=== PATIENT | male | born 1965 | race Caucasian/White ===

== ENCOUNTER 2021-01-06 14:58 | Emergency (ER) | payer SELFPAY ==
--- NOTE | 2021-01-06 15:55 | ER ---
Nurse's Notes [facility] Name: Shashi Gutierrez Age: 55 yrs Sex: Male : 1965 Arrival Date: 01/06/2021 Time: 15:00 Bed 9 Private MD: Diagnosis: Essential (primary) hypertension;Electrocution, initial encounter Presentation: 01/06 15:09 Chief complaint: Patient states: Went to Dr. Joshua today because my stomach is hurting jl7 and I'm feeling ''foggy" since 0900 this morning and she sent me to ER because my blood pressure was 192/117, I've been out of 20 mg Lisinopril for the last 3 months. Coronavirus screen: At this time, the client does not indicate any symptoms associated with coronavirus-19. Ebola Screen: No symptoms or risks identified at this time. Initial Sepsis Screen: Does the patient meet any 2 criteria? No. Patient's initial sepsis screen is negative. Does the patient have a suspected source of infection? No. Patient's initial sepsis screen is negative. Risk Assessment: Do you want to hurt yourself or someone else? Patient reports no desire to harm self or others. Onset of symptoms was January 06, 2021. Care prior to arrival: None. 15:09 Method Of Arrival: Ambulatory [facility] 15:09 Acuity: MARIAM 3 jl7 Triage Assessment: 15:19 Headache History: The patient has had previous headaches and this one is similar to jl7 previous episodes. General: Appears in no apparent distress. uncomfortable, Behavior is calm, cooperative, appropriate for age. Pain: Complains of pain in abdomen diffusely Pain currently is 7 out of 10 on a pain scale. Pain began gradually, Also complains of no other associated symptoms. Neuro: Level of Consciousness is awake, alert, obeys commands, Oriented to person, place, time, situation. Historical: - Allergies: 15:19 Lortab Elixir; jl7 - Home Meds: 15:19 lisinopril 20 mg Oral tab 1 tab once daily [Active]; jl7 - PMHx: 15:19 Hypertensive disorder; jl7 - PSHx: 15:19 back; jl7 - Immunization history:: Adult Immunizations not immunized, Client reports having NOT received the Covid vaccine. - Social history:: Smoking status: Patient denies any tobacco usage or history of. Screenin:32 Abuse screen: Denies threats or abuse. Denies injuries from another. Nutritional es2 screening: No deficits noted. Tuberculosis screening: No symptoms or risk factors identified. Fall Risk Ambulatory Aid- None/Bed Rest/Nurse Assist (0 pts). Mental Status- Oriented to own ability (0 pts). Assessment: 15:30 Reassessment: Patient and/or family updated on plan of care and expected duration. Pain es2 level reassessed. Patient is alert, oriented x 3, equal unlabored respirations, skin warm/dry/pink. General: Appears obese, well groomed, well nourished, Behavior is calm, cooperative, appropriate for age. 15:31 Pain: Complains of pain in abdomen Pain currently is 7 out of 10 on a pain scale. es2 Neuro: Level of Consciousness is awake, alert, obeys commands, Oriented to person, place, time, situation, Appropriate for age Gait is steady, Speech is normal. Cardiovascular: Capillary refill < 3 seconds Patient's skin is warm and dry. Respiratory: Airway is patent Respiratory effort is even, unlabored, Respiratory pattern is regular, symmetrical. GI: Reports lower abdominal pain. : No signs and/or symptoms were reported regarding the genitourinary system. EENT: No signs and/or symptoms were reported regarding the EENT system. Derm: No signs and/or symptoms reported regarding the dermatologic system. Musculoskeletal: No signs and/or symptoms reported regarding the musculoskeletal system. Vital Signs: 15:09 BP 196 / 107; Pulse 89; Resp 17; Temp 98.2; Pulse Ox 98% ; Weight 145.6 kg; Height 5 jl7 ft. 9 in. (175.26 cm); Pain 7/10; 15:32 BP 173 / 115; Pulse 87; Resp 18; Pulse Ox 97% on R/A; es2 15:09 Body Mass Index 47.40 (145.60 kg, 175.26 cm) jl7 NIH Stroke Scale Scores: 15:57 NIHSS Score: 0 jr8 ED Course: 15:00 Patient arrived in ED. am2 15:19 Triage completed. jl7 15:19 Arm band placed on right wrist. jl7 15:23 Marcelo Aldana PA is PHCP. jr8 15:23 Paul Cortés MD is Attending Physician. jr8 15:23 Brynn Schmitt, RN is Primary Nurse. es2 15:32 Patient has correct armband on for positive identification. Call light in reach. es2 15:32 No provider procedures requiring assistance completed. es2 15:56 Patient did not have IV access during this emergency room visit. es2 Administered Medications: No medications were administered Outcome: 15:54 Discharge ordered by MD. jr8 15:56 Discharged to home ambulatory. es2 15:56 Condition: stable 16:05 Patient left the ED. es2 16:06 Discharge instructions given to patient, Instructed on discharge instructions. es2 NIH Stroke Scale - NIH Stroke Score Date: 01/06/2021 Time: 15:57 Total Score = 0 1a. Level of Consciousness (LOC) - 0(Alert) 1b. Level of Consciousness (LOC) (Month \\T\\ Age) - 0(Both) 1c. LOC Commands (Open \\T\\ Closes Eyes/[employer]) - 0(Both) 2. Best Gaze (Lateral Gaze Paresis) - 0(Normal) 3. Visual Field Loss - 0(No visual loss) 4. Facial Palsy - 0(Normal) 5a. Left Arm: Motor (10-second hold) - 0(No drift) 5b. Right Arm: Motor (10-second hold) - 0(No drift) 6a. Left Leg: Motor (5-second hold - always test supine) - 0(No drift) 6b. Right Leg: Motor (5-second hold - always test supine) - 0(No drift) 7. Limb Ataxia (finger/nose \\T\\ heel/de [place]antos - test with eyes open) - 0(Absent) 8. Sensory Loss (pinprick arms/legs/face) - 0(Normal) 9. Best Language: Aphasia (description/naming/reading) - 0(No aphasia) 10. Dysarthria (speech clarity - read or repeat words) - 0(Normal) 11. Extinction and Inattention (visual/tactile/auditory/spatial/personal) - 0(No abnormality) Initials: daiana Signatures: Marcelo Aldana PA PA jr8 Clint Good RN RN jl7 Karina Crespo am2 Brynn Schmitt, MONAE RN es2 Corrections: (The following items were deleted from the chart) 15:21 15:19 Allergies: No Known Allergies; tamera jl7
--- NOTE | 2021-01-06 15:55 | EDPHYS ---
Physician Documentation [facility] Name: Shashi Gutierrez Age: 55 yrs Sex: Male : 1965 Arrival Date: 01/06/2021 Time: 15:00 Bed 9 Private MD: ED Physician Paul Cortés HPI: 01/06 15:57 This 55 yrs old Male presents to ER via Ambulatory with complaints of High jr8 Blood Pressure. 15:57 This is a 55-year-old male patient that came to the emergency room for further jr8 evaluation for his high blood pressure. Patient stated that he has been off of his meds for about a month and went to his primary care physician office today for refill. Patient stated that they noticed his blood pressure to be markedly elevated and wanted him to be evaluated in the emergency room. Patient stated that he has had a brain fog for the past day or so and also has had a little bit of upper abdominal discomfort. Denies any nausea vomiting diarrhea, blood in the stools, constipation, fevers. 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 Stated that held onto them for about 10 to 15 seconds. Since then has had general muscle fatigue but has felt well otherwise. Denies any other symptoms related to electrocution.. Historical: - Allergies: 15:19 Lortab Elixir; jl7 - Home Meds: 15:19 lisinopril 20 mg Oral tab 1 tab once daily [Active]; jl7 - PMHx: 15:19 Hypertensive disorder; jl7 - PSHx: 15:19 back; jl7 - Immunization history:: Adult Immunizations not immunized, Client reports having NOT received the Covid vaccine. - Social history:: Smoking status: Patient denies any tobacco usage or history of. ROS: 15:57 Eyes: Negative for injury, pain, redness, and discharge, ENT: Negative for injury, jr8 pain, and discharge, Neck: Negative for injury, pain, and swelling, Cardiovascular: Negative for chest pain, palpitations, and edema, Respiratory: Negative for shortness of breath, cough, wheezing, and pleuritic chest pain, Back: Negative for injury and pain, MS/Extremity: Negative for injury and deformity, Skin: Negative for injury, rash, and discoloration, Neuro: Negative for headache, weakness, numbness, tingling, and seizure. 15:57 Constitutional: Positive for fatigue. 15:57 Abdomen/GI: Positive for abdominal pain, Negative for nausea, vomiting, and diarrhea, hematemesis, black/tarry stool, rectal pain, rectal bleeding, bowel incontinence, flatulence. Exam: 15:57 Constitutional: This is a well developed, well nourished patient who is awake, alert, jr8 and in no acute distress. Eyes: Pupils equal round and reactive to light, extra-ocular motions intact. Lids and lashes normal. Conjunctiva and sclera are non-icteric and not injected. Cornea within normal limits. Periorbital areas with no swelling, redness, or edema. ENT: Nares patent. No nasal discharge, no septal abnormalities noted. Tympanic membranes are normal and external auditory canals are clear. Oropharynx with no redness, swelling, or masses, exudates, or evidence of obstruction, uvula midline. Mucous membranes moist. Neck: Trachea midline, no thyromegaly or masses palpated, and no cervical lymphadenopathy. Supple, full range of motion without nuchal rigidity, or vertebral point tenderness. No Meningismus. Chest/axilla: Normal chest wall appearance and motion. Nontender with no deformity. No lesions are appreciated. Cardiovascular: Regular rate and rhythm with a normal S1 and S2. No gallops, murmurs, or rubs. Normal PMI, no JVD. No pulse deficits. Respiratory: Lungs have equal breath sounds bilaterally, clear to auscultation and percussion. No rales, rhonchi or wheezes noted. No increased work of breathing, no retractions or nasal flaring. Abdomen/GI: Soft, non-tender, with normal bowel sounds. No distension or tympany. No guarding or rebound. No evidence of tenderness throughout. Back: No spinal tenderness. No costovertebral tenderness. Full range of motion. Skin: Warm, dry with normal turgor. Normal color with no rashes, no lesions, and no evidence of cellulitis. MS/ Extremity: Pulses equal, no cyanosis. Neurovascular intact. Full, normal range of motion. Neuro: Awake and alert, GCS 15, oriented to person, place, time, and situation. Cranial nerves II-XII grossly intact. Motor strength 5/5 in all extremities. Sensory grossly intact. Cerebellar exam normal. Normal gait. Vital Signs: 15:09 BP 196 / 107; Pulse 89; Resp 17; Temp 98.2; Pulse Ox 98% ; Weight 145.6 kg; Height 5 jl7 ft. 9 in. (175.26 cm); Pain 7/10; 15:32 BP 173 / 115; Pulse 87; Resp 18; Pulse Ox 97% on R/A; es2 15:09 Body Mass Index 47.40 (145.60 kg, 175.26 cm) jl7 NIH Stroke Scale Scores: 15:57 NIHSS Score: 0 jr8 MDM: 15:30 Patient medically screened. jr8 15:53 Data reviewed: vital signs, nurses notes, and as a result, I will discharge patient. jr8 Data interpreted: Pulse oximetry: on room air is 97 %. Interpretation: normal. Counseling: I had a detailed discussion with the patient and/or guardian regarding: the historical points, exam findings, and any diagnostic results supporting the discharge/admit diagnosis, the need for outpatient follow up, a family practitioner, to return to the emergency department if symptoms worsen or persist or if there are any questions or concerns that arise at home. 15:57 ED course: Patient stated that he came today for evaluation of his blood pressure jr8 management. His physician was able to call in the medicine prior to arrival. Stated that he was looking for reassurance as far as his electrocution as well. Explained to patient that his physical exam was unremarkable. There is no focal signs of neurologic deficit. Abdomen was soft and without any rigidity or focal tenderness. Remainder of exam was unremarkable. At this time I could not tell him whether there was anything significant other than doing the physical exam unless we did blood work and/or imaging if needed. Patient was okay with this and would rather forego labs and imaging at this time and give it a couple more days to see how he feels. Recommended that patient be off the rest of the week and continue to vigorously hydrate in the meantime. If at any point time he were to worsen for any reason or have any new symptom involvement that he needs to immediately come back to the emergency room for further evaluation. Patient is good with this plan and will follow up and/or come back.. Administered Medications: No medications were administered Disposition Summary: 01/06/21 15:54 Discharge Ordered Location: Home jr8 Problem: new jr8 Symptoms: have improved jr8 Condition: Stable jr8 Diagnosis - Essential (primary) hypertension jr8 - Electrocution, initial encounter jr8 Followup: jr8 - With: Private Physician - When: 5 - 6 days - Reason: Recheck today's complaints, Continuance of care, Re-evaluation by your physician Discharge Instructions: - Discharge Summary Sheet jr8 - Electric Shock Injury jr8 - Hypertension, Adult jr8 Forms: - Medication Reconciliation Form jr8 - Thank You Letter jr8 - Antibiotic Education jr8 - Prescription Opioid Use jr8 NIH Stroke Scale - NIH Stroke Score Date: 01/06/2021 Time: 15:57 Total Score = 0 1a. Level of Consciousness (LOC) - 0(Alert) 1b. Level of Consciousness (LOC) (Month \T\ Age) - 0(Both) 1c. LOC Commands (Open \T\ Closes Eyes/Apartment Manager) - 0(Both) 2. Best Gaze (Lateral Gaze Paresis) - 0(Normal) 3. Visual Field Loss - 0(No visual loss) 4. Facial Palsy - 0(Normal) 5a. Left Arm: Motor (10-second hold) - 0(No drift) 5b. Right Arm: Motor (10-second hold) - 0(No drift) 6a. Left Leg: Motor (5-second hold - always test supine) - 0(No drift) 6b. Right Leg: Motor (5-second hold - always test supine) - 0(No drift) 7. Limb Ataxia (finger/nose \T\ heel/de [place]antos - test with eyes open) - 0(Absent) 8. Sensory Loss (pinprick arms/legs/face) - 0(Normal) 9. Best Language: Aphasia (description/naming/reading) - 0(No aphasia) 10. Dysarthria (speech clarity - read or repeat words) - 0(Normal) 11. Extinction and Inattention (visual/tactile/auditory/spatial/personal) - 0(No abnormality) Initials: jr8 Addendum: 01/10/2021 06:56 Co-signature as Attending Physician, Paul Cortés MD I agree with the [facility] assessment and plan of care. Signatures: Paul Cortés MD MD cha Roszak, Josh, PA PA jr8 Clint Good, MONAE RN jl7 Corrections: (The following items were deleted from the chart) 01/06 15:21 15:19 Allergies: No Known Allergies; jl7 jl7
[2021-01-06 16:13] VITALS: TEMP 98.2
[2021-01-06 16:14] VITALS: BP 173/115; O2SAT 97
== END 2021-01-06 16:05 | disposition home or self-care (01) ==
LOC: ER 14:58
DX: I10 Essential (primary) hypertension (principal); T75.4XXA Electrocution, initial encounter; Z88.8 Allergy status to other drugs, medicaments and biological substances
CPT/HCPCS: 99281